=== PATIENT | female | born 1965 | race Caucasian/White ===

== ENCOUNTER 2017-12-17 07:21 | Emergency (ER) | payer BC ==
[2017-12-17] MEDS ORDERED: Ketorolac INJ* 30 MG/ML 1 ML VIAL IM ONE (09:02)
--- NOTE | 2017-12-17 09:15 | UC ---
Back Pain HPI - HPI Summary HPI Summary: 52 yo WF c/o right upper buttock pain radiating to lumbar region x 2 weeks, NOT improved with muscle relaxers, ibuprofen and tylenol, hot packs. States that the last 2 days medication has not been working. Denies any trauma. Hard to find comfortable position and is walking back and forth in the room, does not radiate to right LE, denies dysuria, urgency frequency. Pt's sister notes she has fmhx of renal stones and would like to check for renal stones [ End ] - History of Current Complaint Chief Complaint: UCBackPain Stated Complaint: BACK PAIN Time Seen by Provider: 12/17/17 07:50 Hx Obtained From: Patient, Family/Label Sewer Hx From Patient Unobtainable Due To: Other Hx Last Menstrual Period: no period in 1 year Onset/Duration: Lasting Weeks, Still Present Timing: Lasting Days Severity Initially: Moderate Severity Currently: Moderate Pain Intensity: 8 Character: Dull, Aching - Allergies/Home Medications Allergies/Adverse Reactions: Allergies Allergy/AdvReac Type Severity Reaction Status Date / Time Penicillins Allergy Rash Verified 12/17/17 07:31 Sulfa (Sulfonamide Allergy Swelling Verified 12/17/17 07:31 Antibiotics) Of Face,Lips,& Throat Home Medications: Home Medications Abatacept [Orencia] 125 mg SC WEEKLY 12/17/17 [History Confirmed 12/17/17] Cholecalciferol TAB* [Vitamin D TAB*] 4,000 units PO DAILY 12/17/17 [History Confirmed 12/17/17] Estradiol/Norethindrone Acet [Estradiol-Noreth 1-0.5 mg Tab] 1 tab PO DAILY [History Confirmed 12/17/17] Hydroxychloroquine TAB* [Plaquenil TAB*] 200 mg PO DAILY 12/17/17 [History Confirmed 12/17/17] Leflunomide 10 mg PO DAILY 12/17/17 [History Confirmed 12/17/17] Risedronate Sodium 150 mg PO MONTHLY 12/17/17 [History Confirmed 12/17/17] Ubidecarenone [Coq-10] 200 mg PO DAILY 12/17/17 [History Confirmed 12/17/17] Vitamin B Complex [Super B-50 Complex] 1 each PO DAILY 12/17/17 [History Confirmed 12/17/17] PMH/Surg Hx/FS Hx/Imm Hx - Additional Past Medical History Additional PMH: advanced RA - Surgical History Surgical History: None Surgery Procedure, Year, and Place: jaw surgery at 11 y/o - Family History Known Family History: Positive: Other - renal calculi - Social History Alcohol Use: None Substance Use Type: None Smoking Status (MU): Current Every Day Smoker Review of Systems Constitutional: Other - restless, walking back and forth, cannot find a comfortable position Skin: Negative Eyes: Negative ENT: Negative Respiratory: Negative Cardiovascular: Negative Gastrointestinal: Negative Genitourinary: Negative Motor: Negative Neurovascular: Negative Musculoskeletal: Other: - SEE HPI Neurological: Negative Psychological: Negative Is Patient Immunocompromised?: Yes - pt takes MTX All Other Systems Reviewed And Are Negative: Yes Physical Exam Triage Information Reviewed: Yes Appearance: Pain Distress Vital Signs: Initial Vital Signs Temp 37.5 C 12/17/17 07:30 Pulse 101 12/17/17 07:30 Resp 20 12/17/17 07:30 BP 156/78 12/17/17 07:30 Pulse Ox 100 12/17/17 07:30 Eye Exam: Normal ENT Exam: Normal Dental Exam: Normal Neck exam: Normal Neck: Positive: 1 Respiratory Exam: Normal Cardiovascular Exam: Normal Abdominal Exam: Normal Musculoskeletal: Positive: Strength Limited @, ROM Limited @, Other: - right upper quadrant buttock tenderness radiating to L2-5 Neurological Exam: Normal Psychological Exam: Normal Skin Exam: Normal Back Pain Course/Dx - Course Course Of Treatment: UA neg, NO improvement in pain in spite of 1tab [place] and Im Toradol 30mg, advised to go to ED, declined ambulance, sister to drive pt to ED - Differential Dx/Diagnosis Provider Diagnoses: INTRACTABLE LBP and right buttock pain Discharge - Discharge Plan Condition: Stable Disposition: OTHER Discharge Disposition Comment: Discharged to ED, offered ambulance but declined , sister to drove pt to ED. Prescriptions: HYDROcodone/ACETAMIN 5-325 MG* [[place] 5-325 TAB*] 1 tab PO Q8H PRN 2 Days #6 tab MDD 3 PRN Reason: Pain Hydrocodone/Acetaminophen [Hydrocodone-Acetamin 5-325 mg] 1 each PO Q8HR PRN #6 tablet MDD 3 PRN Reason: Pain - Moderate To Severe Patient Education Materials: Back Pain (ED) Referrals: Lashawn Mcdermott [employer]UILL CLEANER [Primary Care Provider] - Additional Instructions: pls go to ER for better pain control
[2017-12-17] MEDS ORDERED: oxyCODONE/Acetamin 5/325 MG* TAB PO ONE (09:49)
[2017-12-17] MEDS ORDERED: HYDROcodone/ACETAMIN 5-325 MG* 1 TAB PO ONE (09:55)
[2017-12-17 10:43] VITALS: BP 161/73
== END 2017-12-17 10:36 ==
LOC: UCEAST 07:21
DX: M54.5 Low back pain (principal); M79.1 Myalgia; Z88.0 Allergy status to penicillin; Z88.2 Allergy status to sulfonamides; M06.9 Rheumatoid arthritis, unspecified; F17.200 Nicotine dependence, unspecified, uncomplicated
CPT/HCPCS: 81003; 96372; 99212; A9270-GY; G0463; J1885

== ENCOUNTER 2017-12-17 11:02 | Emergency (ER) | payer BC ==
[2017-12-17] MEDS ORDERED: Ondansetron INJ* 2 MG/ML VIAL IV ONE (11:49)
[2017-12-17] MEDS ORDERED: Diazepam SYRINGE* 5 MG/ML 2 ML SYRINGE (10 MG total) IV ONE (11:49)
[2017-12-17] MEDS ORDERED: Morphine INJ* 4 MG/ML 1 ML CARPUJECT IV ONE (11:50)
[2017-12-17] MEDS ORDERED: Diazepam TAB(*) 5 MG PO ONE (11:53)
[2017-12-17] MEDS ORDERED: Morphine INJ* 4 MG/ML 1 ML SYRINGE (NEW SYRINGE VERSION) ONE (11:54)
[2017-12-17 12:09] LABS: ABS Basophils 0 10^3/ul (0-0.2); ABS Eosinophils 0.2 10^3/ul (0-0.6); ABS Monocytes 0.7 10^3/ul (0-0.8); ABS Neutrophils 3.9 10^3/ul (1.5-7.7); ABS Nucleated RBC 0 10^3/ul; Hematocrit 44 % (35-47); Mean Corpuscular HGB Conc 34 g/dl (31-36); Mean Corpuscular Hemoglobin 35 pg (27-31); Mean Corpuscular Volume 103 fL (80-97); Mean Platelet Volume 11 um3 (7.4-10.4); Nucleated Red Blood Cells % 0; Platelet Count 130 10^3/ul (150-450); Red Blood Count 4.26 10^6/ul (4.0-5.4); Red Cell Distribution Width 12 % (10.5-15); White Blood Count 7.9 10^3/ul (3.5-10.8)
[2017-12-17 12:18] LABS: INR 0.99 (0.77-1.02)
[2017-12-17 12:26] LABS: EGFR Non-African American 90.5 (>60)
--- NOTE | 2017-12-17 13:01 | ED ---
Back Pain - HPI Summary HPI Summary: Patient here with persistent and progressive left lower back pain 2 weeks. Reports this started in her Lt buttock and has been radiating up her back. She' s tried Flexeril, Tylenol, and heat at home without relief. She denies radicular symptoms as well as numbness, tingling or weakness and no change in bowel or bladder habits. She denies injury to the area or new activities, positions, etc. that may have triggered this pain. She does admit to a history of RA and takes multiple medications for this including but not limited to methotrexate, plaquenil, folic acid, vitamin D and Cymbalta (this is used to treat pain as well as mood disorder secondary to RA). She was prescribed Flexeril to be used on an as-needed basis if her PT sessions leave her feeling too sore - she reports this typically helps however has not helped the pain this time. She denies new bruising or bleeding and no fevers, chills, chest pain, shortness of breath, nausea, vomiting, diarrhea. She was seen at [facility] prior to coming over today. While there she had a urinalysis which was negative and normal. She also received 30 IM of Toradol and 03/04/25 of [place] by mouth - patient reports these have "taken the edge off her pain" only. She can find no comfortable position and nothing seems to make it worse although she does get jolts of pain at times. She is accompanied by her sister today who is driving her. Reports this does not feel like an RA flare up rather muscular strain. - History of Current Complaint Chief Complaint: EDBackInjuryPain Stated Complaint: BACK PAIN Time Seen by Provider: 12/17/17 11:47 Hx Obtained From: Patient, Family/Histology Assistant - Sister Hx Last Menstrual Period: no period in 1 year Pain Intensity: 6 - Allergies/Home Medications Allergies/Adverse Reactions: Allergies Allergy/AdvReac Type Severity Reaction Status Date / Time Penicillins Allergy Rash Verified 12/17/17 07:31 Sulfa (Sulfonamide Allergy Swelling Verified 12/17/17 07:31 Antibiotics) Of Face,Lips,& Throat PMH/Surg Hx/FS Hx/Imm Hx Previously Healthy: Yes Endocrine/Hematology History: Reports: Hx Anticoagulant Therapy - Plaquenil, Autoimmune Disease - RA - takes methotrexate - followed by physician with labs every 2 weeks Denies: Hx Diabetes, Hx Thyroid Disease Cardiovascular History: Denies: Hx Hypertension Respiratory History: Denies: Hx Asthma, Hx Chronic Obstructive Pulmonary Disease (COPD) GI History: Denies: Hx Ulcer Musculoskeletal History: Reports: Hx Rheumatoid Arthritis - on medication - Cancer History Hx Chemotherapy: No Hx Radiation Therapy: No - Surgical History Surgery Procedure, Year, and Place: jaw surgery at 11 y/o Infectious Disease History: No Infectious Disease History: Denies: Hx Clostridium Difficile, Hx Hepatitis, Hx Human Immunodeficiency Virus (HIV), Hx Shingles, Hx Tuberculosis, History Other Infectious Disease, Traveled Outside the [place] in Last 30 Days - Family History Known Family History: Positive: Other - renal calculi - Social History Lives: With Family - Alcohol Use: None Hx Substance Use: No Substance Use Type: Reports: None Hx Tobacco Use: Yes Smoking Status (MU): Current Every Day Smoker Type: Cigars Amount Used/How Often: 1/day Review of Systems Constitutional: Negative Negative: Fever, Chills, Fatigue Eyes: Negative ENT: Negative Cardiovascular: Negative Negative: Palpitations, Chest Pain Respiratory: Negative Negative: Shortness Of Breath Gastrointestinal: Negative Negative: Abdominal Pain, Vomiting, Diarrhea, Nausea Genitourinary: Negative Negative: burning, dysuria, discharge, frequency, flank pain, hematuria, incontinence, pain, urgency Positive: Arthralgia, Myalgia, Decreased ROM Skin: Negative Neurological: Negative Psychological: Other - frustrated coping well overallcalm and cooperative All Other Systems Reviewed And Are Negative: Yes Physical Exam Triage Information Reviewed: Yes Vital Signs On Initial Exam: Initial Vitals Temp Pulse Resp BP Pulse Ox 99.3 F 92 17 163/83 98 12/17/17 11:07 12/17/17 11:07 12/17/17 11:07 12/17/17 11:07 12/17/17 11:07 Vital Signs Reviewed: Yes Appearance: Positive: Well-Appearing, Well-Nourished, Pain Distress - Patient standing, leaning towards left and flexed at the hip slightlyappears to be uncomfortable and has difficulty getting comfortablegoes from sitting, to standing, walking around Skin: Positive: Warm, Skin Color Reflects Adequate Perfusion, Dry - No erythema , no ecchymosis, no lesions over affected area Head/Face: Positive: Normal Head/Face Inspection Eyes: Positive: Normal, EOMI, Conjunctiva Clear ENT: Positive: Normal ENT inspection, Hearing grossly normal Neck: Positive: Supple Respiratory/Lung Sounds: Positive: Breath Sounds Present Cardiovascular: Positive: Normal, Pulses are Symmetrical in both Upper and Lower Extremities. Negative: Leg Edema Left, Leg Edema Right Abdomen Description: Positive: Nontender, Soft. Negative: CVA Tenderness (R), CVA Tenderness (L) Musculoskeletal: Positive: Limited @ - Lumbar spine is limited in regards to full extension, Pain @ - Left SI joint is tender to palpation; spinous processes and paraspinal muscles are nontender to palpation Neurological: Positive: Normal, Sensory/Motor Intact, Alert, Oriented to Person Place, Time, CN Intact II-III, Facial Symmetry, Speech Normal Psychiatric: Positive: Normal - Concerned but is calm, cooperative and polite exam today Diagnostics - Vital Signs Vital Signs Temp Pulse Resp BP Pulse Ox 12/17/17 12:04 18 12/17/17 12:03 18 12/17/17 11:07 99.3 F 92 17 163/83 98 - Laboratory Lab Results: Lab Results 12/17/17 12/17/17 12/17/17 Range/Units 11:56 11:56 11:56 WBC 7.9 (3.5-10.8) 10^3/ul RBC 4.26 (4.0-5.4) 10^6/ul Hgb 15.0 (12.0-16.0) g/dl Hct 44 (35-47) % MCV 103 H (80-97) fL MCH 35 H (27-31) pg MCHC 34 (31-36) g/dl RDW 12 (10.5-15) % Plt Count 130 L (150-450) 10^3/ul MPV 11 H (7.4-10.4) um3 Neut % (Auto) 49.1 (38-83) % Lymph % (Auto) 38.0 (25-47) % [place] % (Auto) 9.3 H (1-9) % Eos % (Auto) 3.0 (0-6) % Baso % (Auto) 0.6 (0-2) % Absolute Neuts (auto) 3.9 (1.5-7.7) 10^3/ul Absolute Lymphs (auto) 3.0 (1.0-4.8) 10^3/ul Absolute Monos (auto) 0.7 (0-0.8) 10^3/ul Absolute Eos (auto) 0.2 (0-0.6) 10^3/ul Absolute Basos (auto) 0 (0-0.2) 10^3/ul Absolute Nucleated RBC 0 10^3/ul Nucleated RBC % 0 INR (Anticoag Therapy) 0.99 (0.77-1.02) APTT 30.0 (26.0-36.3) seconds Sodium 135 (133-145) mmol/L Potassium 3.6 (3.5-5.0) mmol/L Chloride 106 (101-111) mmol/L Carbon Dioxide 24 (22-32) mmol/L Anion Gap 5 (2-11) mmol/L BUN 10 (6-24) mg/dL Creatinine 0.68 (0.51-0.95) mg/dL Est GFR ( Amer) 116.4 (>60) Est GFR (Non-Af Amer) 90.5 (>60) BUN/Creatinine Ratio 14.7 (8-20) Glucose 113 H (70-100) mg/dL Lactic Acid (0.5-2.0) mmol/L Calcium 9.6 (8.6-10.3) mg/dL Total Bilirubin 0.60 (0.2-1.0) mg/dL AST 35 (13-39) U/L ALT 38 (7-52) U/L Alkaline Phosphatase 51 (34-104) U/L C-Reactive Protein 3.59 (< 5.00) mg/L Total Protein 7.4 (6.4-8.9) g/dL Albumin 4.6 (3.2-5.2) g/dL Globulin 2.8 (2-4) g/dL Albumin/Globulin Ratio 1.6 (1-3) 12/17/17 Range/Units 11:56 WBC (3.5-10.8) 10^3/ul RBC (4.0-5.4) 10^6/ul Hgb (12.0-16.0) g/dl Hct (35-47) % MCV (80-97) fL MCH (27-31) pg MCHC (31-36) g/dl RDW (10.5-15) % Plt Count (150-450) 10^3/ul MPV (7.4-10.4) um3 Neut % (Auto) (38-83) % Lymph % (Auto) (25-47) % [place] % (Auto) (1-9) % Eos % (Auto) (0-6) % Baso % (Auto) (0-2) % Absolute Neuts (auto) (1.5-7.7) 10^3/ul Absolute Lymphs (auto) (1.0-4.8) 10^3/ul Absolute Monos (auto) (0-0.8) 10^3/ul Absolute Eos (auto) (0-0.6) 10^3/ul Absolute Basos (auto) (0-0.2) 10^3/ul Absolute Nucleated RBC 10^3/ul Nucleated RBC % INR (Anticoag Therapy) (0.77-1.02) APTT (26.0-36.3) seconds Sodium (133-145) mmol/L Potassium (3.5-5.0) mmol/L Chloride (101-111) mmol/L Carbon Dioxide (22-32) mmol/L Anion Gap (2-11) mmol/L BUN (6-24) mg/dL Creatinine (0.51-0.95) mg/dL Est GFR ( Amer) (>60) Est GFR (Non-Af Amer) (>60) BUN/Creatinine Ratio (8-20) Glucose (70-100) mg/dL Lactic Acid 0.5 (0.5-2.0) mmol/L Calcium (8.6-10.3) mg/dL Total Bilirubin (0.2-1.0) mg/dL AST (13-39) U/L ALT (7-52) U/L Alkaline Phosphatase (34-104) U/L C-Reactive Protein (< 5.00) mg/L Total Protein (6.4-8.9) g/dL Albumin (3.2-5.2) g/dL Globulin (2-4) g/dL Albumin/Globulin Ratio (1-3) Result Diagrams: 12/17/17 11:56 12/17/17 11:56 Lab Statement: Any lab studies that have been ordered have been reviewed, and results considered in the medical decision making process. Back Pain Course/Dx - Course Course Of Treatment: Patient presents with 2 week history of left SI joint region pain which is radiating up her back. She was seen at [facility] and tested for urinary tract pathology however urine analysis was negative and normal. Her vital signs were also normal also patient was sent over for more thorough evaluation given her are history. Labs were drawn and additional pain medications ordered. Additionally imaging was ordered as well - CT will provide most detail given patient's symptoms today however she may benefit from an MRI outpatient if these are inconclusive in regards to her pain today. Labs reviewed and do not appear to reveal acute hemorrhage, infection. Patient is signed out to Lucy Velasquez PA-C pending CT images and pain control. - Diagnoses Provider Diagnoses: Left low back pain Discharge - Discharge Plan Condition: Stable Disposition: OTHER Discharge Disposition Comment: SIGNED OUT Referrals: Lashawn Mcdermott [employer]NALYSIS WELL LOGGING OPERATOR [Primary Care Provider] -
--- NOTE | 2017-12-17 13:41 | RAD ---
HISTORY: Low back pain and left SI joint pain COMPARISONS: CT of the abdomen and pelvis dated August 26, 2013 TECHNIQUE: Multiple contiguous axial CT scans were obtained of the lumbar spine without intravenous contrast, with coronal and sagittal multiplanar reformations. FINDINGS: SPINAL CANAL: Evaluation of the central canal is limited on CT technique; however, there is no obvious canalicular mass or epidural hemorrhage. ALIGNMENT: The alignment is normal. VERTEBRAL BODIES: The vertebral bodies are preserved in height. The bones are normal in attenuation. JOINTS: There is no subluxation or dislocation. MUSCULATURE: Unremarkable INTERVERTEBRAL DISCS: There is mild diffuse loss of intervertebral disc height throughout the spine. AXIAL IMAGES: T12-L1: There is no osseous neural foraminal narrowing or central canal stenosis. L1-L2: There is no osseous neural foraminal narrowing or central canal stenosis. L2-L3: There is no osseous neural foraminal narrowing or central canal stenosis. L3-L4: There is no osseous neural foraminal narrowing or central canal stenosis. L4-L5: There is no osseous neural foraminal narrowing or central canal stenosis. L5-S1: There is no osseous neural foraminal narrowing or central canal stenosis. SOFT TISSUES: There is a high attenuation cyst of the lower pole of left kidney measuring 0.8 cm in size, corresponding to a cyst noted on the 2013 examination, stable, consistent with a Bosniak 2 cyst. OTHER: None IMPRESSION: MILD DEGENERATIVE DISC DISEASE. NO OSSEOUS NEURAL FORAMINAL NARROWING OR CENTRAL CANAL STENOSIS.
--- NOTE | 2017-12-17 13:46 | RAD ---
HISTORY: Back pain, SI joint pain COMPARISONS: CT dated August 26, 2013 TECHNIQUE: Multiple contiguous axial CT images are obtained of the pelvis, with coronal and sagittal multiplanar reconstructions, without intravenous contrast administration. FINDINGS: BONE DENSITY: Normal. BONES: There is no displaced fracture. JOINTS: There is moderate osteoarthritis of the hips bilaterally.. The SI joints are unremarkable MUSCULATURE: Unremarkable ALIGNMENT: There is no dislocation. SOFT TISSUES: Unremarkable. OTHER FINDINGS: None. IMPRESSION: OSTEOARTHRITIS OF THE HIPS. NO ACUTE OSSEOUS INJURY. IF SYMPTOMS PERSIST, RECOMMEND REPEAT IMAGING.
--- NOTE | 2017-12-17 14:06 | PN ---
Progress Note - Progress Note Date of Service: 12/17/17 Note: patient was a sign out from Alem Quiros pending Ct and lab results. Also pending pain control. Had relief from pain and was much improve on re-eval at 1:45pm. Updated on imaging and lab results. Continue pain management, anti inflammatory and muscle relaxer at home. Follow up with Ortho. Recommended physical therapy. Aware of worsening signs and symptoms. physical exam: CTA, RRR on re-eval. Normal gait. CT results: lumbar spine: MILD DEGENERATIVE DISC DISEASE. NO OSSEOUS NEURAL FORAMINAL NARROWING OR CENTRAL CANAL STENOSIS. pelvis: OSTEOARTHRITIS OF THE HIPS. NO ACUTE OSSEOUS INJURY. IF SYMPTOMS PERSIST , RECOMMEND REPEAT IMAGING. No concern for other etiology other than MSK at this time, probably SI joint related inflammation. Return if pain is uncontrollable or new symptoms develop. Patient does have left lower extremity longer length than the other. Diagnosis: left low back, SI joint flare Condition: stable Discharge: home
[2017-12-17 14:28] VITALS: BP 124/76
== END 2017-12-17 14:28 | disposition home or self-care (01) ==
LOC: ED 11:02
DX: M54.5 Low back pain (principal); Z79.01 Long term (current) use of anticoagulants; M06.9 Rheumatoid arthritis, unspecified; Z88.0 Allergy status to penicillin; Z88.2 Allergy status to sulfonamides; F17.290 Nicotine dependence, other tobacco product, uncomplicated
CPT/HCPCS: 36415; 72131; 72192; 80053; 83605; 85025; 85610; 85730; 86140; 96374; 96375; 99285; A9270-GY; J2270; J2405